=== PATIENT | male | born 1955 | race Asian ===

== ENCOUNTER 2020-11-28 14:37 | Observation (INO) | payer MEDICARE, OTHER ==
[~2020-11-28] VITALS: Ht 170.2 cm; Wt 89.4 kg
--- NOTE | 2020-11-28 14:50 | NUR ---
ED Nurse Note: pt presents to ED as recommended from Dr. Lawson for low hgb. pt has a h/o anemia and HTN. states that he has had a blood transfusion in the past. pt denies any pain; fevers/chills or SOB at this time. VSS on triage
[2020-11-28 14:51] VITALS: BP 153/82
--- NOTE | 2020-11-28 15:05 | Emergency Room Report ---
History of Present Illness General Chief Complaint: Abnormal Labs Source: Patient Present Illness HPI Patient is a 65-year-old male presents for decreased blood count. Patient had previous history of some fluid on the left lung. Had previous transfusions in the past. Denies any current bleeding. Denies any weakness or dyspnea. Intermittent chest discomfort. Denies any vomiting or diarrhea or rectal blee ding.Patient had recent blood count which showed hemoglobin of 5.8 Allergies: Coded Allergies: No Known Allergies (Unverified , 11/28/20) COVID-19 Screening Contact w/high risk pt: No Experienced COVID-19 symptoms?: No COVID-19 Testing performed INSPECTING SUPERVISOR: No Patient History Past Medical History: see triage record Reviewed Nursing Documentation: PMH: Agreed; PSxH: Agreed Nursing Documentation-PMH Hx Hypertension: Yes Review of Systems All Other Systems: negative except mentioned in HPI Physical Exam Vital Signs Date Time Temp Pulse Resp B/P (MAP) Pulse Ox O2 Delivery O2 Flow Rate FiO2 11/28/20 14:45 98.8 89 18 153/82 (105) 95 Room Air Sp02 EP Interpretation: reviewed, normal General Appearance: normal inspection, well appearing, no apparent distress, alert, GCS 15, Chronically Ill Head: atraumatic ENT: normal ENT inspection, hearing grossly normal, normal voice Neck: normal inspection, full range of motion, supple, no bony tend Respiratory: normal inspection, lungs clear, normal breath sounds, no respir atory distress, no retraction, no wheezing Cardiovascular #1: regular rate, rhythm, no edema Gastrointestinal: normal inspection, normal bowel sounds, non tender, soft, no guarding, no hernia Genitourinary: no CVA tenderness Musculoskeletal: normal inspection, back normal, normal range of motion Neurologic: alert, motor strength/tone normal, right of way man III-XII nml as tested, oriented x3, responsive, speech normal, normal inspection Psychiatric: normal inspection, judgement/insight normal, mood/affect normal Medical Decision Making Diagnostic Impression: Primary Impression: Severe anemia ER Course Patient presented for Abnormal laboratory testing. Differential diagnosis include was not limited to pneumonia, anemia, CHF, renal failure lab error among others. Because of complexity of patient's case laboratory tests and imaging studies were ordered.Patient was consented for blood. Patient's hemoglobin appears to be significantly diminished. Patient was agreeable with blood transfusion. patient's hemoglobin was not significantly changed from previous lab . Patient denies any recent bleeding. Dr. Celso Lawson was contacted for inpatient management. Labs Test 11/28/20 15:40 White Blood Count 8.0 K/UL (4.8-10.8) Red Blood Count 2.85 M/UL (4.70-6.10) Hemoglobin 6.5 G/DL (14.2-18.0) Hematocrit 21.8 % (42.0-52.0) Mean Corpuscular Volume 77 FL (80-99) Mean Corpuscular Hemoglobin 22.7 PG (27.0-31.0) Mean Corpuscular Hemoglobin Concent 29.7 G/DL (32.0-36.0) Red Cell Distribution Width 18.7 % (11.6-14.8) Platelet Count 396 K/UL (150-450) Mean Platelet Volume 5.8 FL (6.5-10.1) Neutrophils (%) (Auto) % (45.0-75.0) Lymphocytes (%) (Auto) % (20.0-45.0) Monocytes (%) (Auto) % (1.0-10.0) Eosinophils (%) (Auto) % (0.0-3.0) Basophils (%) (Auto) % (0.0-2.0) Prothrombin Time 11.1 SEC (9.30-11.50) Prothromb Time International Ratio 1.0 (0.9-1.1) Activated Partial Thromboplast Time 29 SEC (23-33) Sodium Level 138 MMOL/L (136-145) Potassium Level 3.6 MMOL/L (3.5-5.1) Chloride Level 104 MMOL/L (98-107) Carbon Dioxide Level 27 MMOL/L (21-32) Anion Gap 7 mmol/L (5-15) Blood Urea Nitrogen 15 mg/dL (7-18) Creatinine 1.4 MG/DL (0.55-1.30) Estimat Glomerular Filtration Rate 50.5 mL/min (>60) Glucose Level 216 MG/DL (74-106) Calcium Level 8.3 MG/DL (8.5-10.1) Total Bilirubin 1.0 MG/DL (0.2-1.0) Aspartate Amino Transf (AST/SGOT) 11 U/L (15-37) Alanine Aminotransferase (ALT/SGPT) 9 U/L (12-78) Alkaline Phosphatase 70 U/L (46-116) Total Protein 7.4 G/DL (6.4-8.2) Albumin 2.3 G/DL (3.4-5.0) Globulin 5.1 g/dL Albumin/Globulin Ratio 0.5 (1.0-2.7) Lipase 221 U/L (73-393) Last Vital Signs Date Time Temp Pulse Resp B/P (MAP) Pulse Ox O2 Delivery O2 Flow Rate FiO2 11/28/20 14:51 98.8 18 153/82 95 Room Air 11/28/20 14:45 89 Status: unchanged Disposition: PLACE IN OBSERVATION Condition: Stable Marco Gomez MD Nov 28, 2020 15:05
--- NOTE | 2020-11-28 15:39 | NUR ---
ED Nurse Note:blood sent to labs
[2020-11-28 16:27] LABS: HEMATOCRIT 21.8 % (42.0-52.0); MEAN CORPUSCULAR VOLUME 77 FL (80-99); PLATELET COUNT 396 K/UL (150-450); RED BLOOD COUNT 2.85 M/UL (4.70-6.10); RED CELL DISTRIBUTION WIDTH 18.7 % (11.6-14.8)
[2020-11-28 16:36] LABS: ALBUMIN 2.3 G/DL (3.4-5.0); ALBUMIN/GLOBULIN RATIO 0.5 (1.0-2.7); CALCIUM 8.3 MG/DL (8.5-10.1); CREATININE 1.4 MG/DL (0.55-1.30); POTASSIUM 3.6 MMOL/L (3.5-5.1)
[2020-11-28 16:43] LABS: HEMOGLOBIN 6.5 G/DL (14.2-18.0)
[2020-11-28 17:34] LABS: APPEARANCE,URINE CLEAR; BILIRUBIN, URINE NEGATIVE (NEGATIVE); GLUCOSE, URINE (UA) 2+ (NEGATIVE); KETONES,URINE 1+ (NEGATIVE); LEUKOCYTE ESTERASE ,URINE NEGATIVE (NEGATIVE); NITRITE,URINE NEGATIVE (NEGATIVE); PH,URINE 5 (4.5-8.0); PROTEIN,URINE 2+ (NEGATIVE); UROBILINOGEN,URINE 1 MG/DL (0.0-1.0)
[2020-11-28 17:58] LABS: COLOR,URINE YELLOW
--- NOTE | 2020-11-28 18:10 | NUR ---
ED Nurse Note: blood transufusion initated per hospital protcol
--- NOTE | 2020-11-28 18:15 | NUR ---
ED Nurse Note: no adverse reaction noted, will continue to transfuse per hospital protocol
--- NOTE | 2020-11-28 19:14 | NUR ---
HAND-OFF: Report given to Aniyah.
[2020-11-28 19:15] VITALS: BP 148/72
--- NOTE | 2020-11-28 19:15 | NUR ---
ED Nurse Note: Pt laying in bed AAOx4, breathing even and unlabored. No complaints from pt at the moment, denies pain at the moment. Pt currently receiving blood transfusion bag #1 of 2. Fluids offered and accepted.
--- NOTE | 2020-11-28 20:50 | NUR ---
ED Nurse Note: Report given to PREETHI Cedeño in [facility]. Aware bag 1/2 still infusing.
--- NOTE | 2020-11-28 21:00 | NUR ---
TRANSFER TO FLOOR: Patient transferred to [facility] via gurney accompanied by cleaning staff supervisor as ordered per EDMD. Report given to PREETHI Cedeño. Belongings and admission packet given to PREETHI Cedeño.
--- NOTE | 2020-11-28 21:15 | NUR ---
NURSE NOTES: Received report from Gala ORO. Patient is awake, alert and oriented x4. On room air, breathing is even and unlabored. No complain of pain or distress noted. IV right AC with first bag of blood running per order. VS stable. Oriented to hospital room. Patient understands and verbalizes needs. Will administer second bag of blood.
[2020-11-28 21:30] VITALS: BP 145/86
[2020-11-29] VITALS: BP 142/75
--- NOTE | 2020-11-29 03:40 | NUR ---
NURSE NOTES: Patient received total 2 bags of blood. No adverse reaction. VS stable. Patient tolerated transfusion.
[2020-11-29 04:00] VITALS: BP 132/72
--- NOTE | 2020-11-29 07:30 | NUR ---
NURSE HAND-OFF: Important Events on Shift: Admission, 2 bags of blood transfusion Patient Status: Stable Diet: Regular Pending Orders: [] Pending Results/Labs:[] Pending MD notification:[] Latest Vital Signs: Temperature 98.1 , Pulse 76 , B/P 132 /72 , Respiratory Rate 18 , O2 SAT 96 , Room Air, O2 Flow Rate . Vital Sign Comment: VS stable Latest Almaraz Fall Score: 20 Fall Risk: Low Risk Safety Measures: Call light Within Reach, Bed Alarm , Side Rails Side Rails x2, Bed position Low and Locked. Fall Precautions: Patient Fall Education Report given to Kye ORO..
--- NOTE | 2020-11-29 07:51 | NUR ---
NURSE NOTES: Received pt from PREETHI Caballero. pt was resting. no acute distress. call light w/in reach
[2020-11-29 08:00] VITALS: BP 145/84
[2020-11-29 08:32] LABS: BASOPHILS % (AUTO) 0.9 % (0.0-2.0); EOSINOPHILS % (AUTO) 3.1 % (0.0-3.0); HEMATOCRIT 28.7 % (42.0-52.0); HEMOGLOBIN 9.1 G/DL (14.2-18.0); LYMPHOCYTES % (AUTO) 15.7 % (20.0-45.0); MEAN CORPUSCULAR VOLUME 78 FL (80-99); MONOCYTES % (AUTO) 5.2 % (1.0-10.0); NEUTROPHILS % (AUTO) 75.1 % (45.0-75.0); PLATELET COUNT 402 K/UL (150-450); RED BLOOD COUNT 3.65 M/UL (4.70-6.10); RED CELL DISTRIBUTION WIDTH 19.2 % (11.6-14.8); WHITE BLOOD COUNT 8.6 K/UL (4.8-10.8)
--- NOTE | 2020-11-29 09:14 | History and Physical Report ---
DATE OF ADMISSION: 11/28/2020 REASON FOR ADMISSION: Profound anemia. HISTORY OF PRESENT ILLNESS: This is a 65-year-old male recently presented to my practice. The patient had recent admission to an outside facility/hospital for noted anemia and abnormal CT scan. The patient was recommended a biopsy but decided to sign out. The patient presented my office, noting significant fatigue and ongoing hemoptysis. The patient was scheduled for a PET scan. He also had routine blood work to assess whether the patient was significantly anemic and was noted to be so was admitted for observation for transfusion. The patient was feeling better with plan to discharge pending CBC. PAST MEDICAL HISTORY: Notable for lung mass, hypertension, hemoptysis. MEDICATIONS: Reviewed. ALLERGIES: Reviewed. SOCIAL HISTORY: The patient is currently nonsmoker, nondrinker. The patient is retired. REVIEW OF SYSTEMS: All 10 points reviewed and otherwise negative. PHYSICAL EXAMINATION: GENERAL: Well-developed male, overall currently comfortable, no significant distress. VITAL SIGNS: Otherwise reviewed. Blood pressure 132/60, temperature 98.2, heart rate 84, respiratory rate 14. HEENT: Negative. NECK: Supple. LUNGS: With reduced breath sounds on left base, otherwise clear. CARDIAC: S1 and S2. Regular rate and rhythm without murmurs, rubs, gallops. ABDOMEN: Soft, nontender. EXTREMITIES: No edema. NEUROLOGIC: Grossly nonfocal. Alert and oriented. LABORATORY DATA: Fully reviewed. Most notable for the low hemoglobin less than 7. IMPRESSION: 1. Profound anemia, possibly due to underlying significant hemoptysis. 2. Possible pleural effusion. 3. Lung mass, probable malignancy. Currently stable from pulmonary standpoint. RECOMMENDATION: We will discharge the patient home. Plan for PET CT on Tuesday with close followup. The patient is aware to return to the emergency room if worsening hemoptysis and shortness of breath occurs. We will discharge the patient pending CBC results this morning and the patient is aware to contact me with any issues or concerns or to immediately go to the emergency room if worsening symptoms. Celso Lawson M.D. DR: Jonna JOB#: [id number] CC:
--- NOTE | 2020-11-29 10:53 | NUR ---
NURSE NOTES: D/C pt with stable condition with family
--- NOTE | 2020-12-04 11:09 | Discharge Summary ---
Discharge Summary Discharge Summary _ Date of admission: 11/28/2020 Date of discharge: 11/29/[address] Lawson History of Present Illness and Brief Hospital Course Mr. Person is a 65-year-old male with past medical history of lung mass, hypertension, and hemoptysis, who was referred to the ER due to decreased blood count. Patient reported previous history of transfusions. Of note, patient recently presented to Dr. Lawson's practice. It was noted th at patient had recent admission to an outside facility/hospital for anemia and abnormal CT scan. Patient was recommended a biopsy but he decided to sign out. Since then, patient presented to Dr. Lawson's office complaining of significant fatigue and ongoing hemoptysis. Patient's initial laboratory studies revealed hemoglobin level of 6.5. Patient received 2 units of transfusions and was admitted for observation. The next day, his hemoglobin level improved to 9.1, and he was medically stable from pulmonary standpoint. Patient was scheduled for PET/CT on the upcoming Tuesday. Patient was instructed to return to emergency room if hemoptysis worsens and/or shortness of breath occurs. Consultants: None Discharge Condition Stable from pulmonary standpoint Final diagnoses Anemia, likely secondary to hemoptysis Hemoptysis Possible pleural effusion Lung mass, probable malignancy I have been assigned to dictate discharge summary for this account. I was not involved in the patient's management Ash Roche Dec 04, 2020 11:09
== END 2020-11-29 10:37 | disposition home or self-care (01) ==
LOC: EMR 15:22 → INTOOBSV 18:21 → 4E 18:21 → EDBEDREQ 20:26
DX: D64.9 Anemia, unspecified (principal); I10 Essential (primary) hypertension; R91.8 Other nonspecific abnormal finding of lung field; R04.2 Hemoptysis
CPT/HCPCS: 36415 ×2; 80053; 81003; 83690; 85007; 85025 ×2; 85610; 85730; 86850; 86900; 86901; 86920; 99284; G0378 ×2; P9016; 36430

== ENCOUNTER 2021-01-03 13:04 | Observation (INO) | payer MEDICARE, OTHER ==
[2021-01-03] VITALS (9 sets, daily range): BP systolic 130–150; BP diastolic 78–88
[~2021-01-03] VITALS: Ht 170.2 cm; Wt 86.2 kg
--- NOTE | 2021-01-03 13:25 | Emergency Room Report ---
History of Present Illness General Chief Complaint: Abnormal Labs Source: Patient (Marco Gomez MD) Present Illness HPI Patient is a 65-year-old male brought in by self from doctor's office after abnormal laboratory testing. Patient reportedly had a hemoglobin approximately 7. Prior history of anemia. Patient was sent in for possible transfusion. Denies any bleeding. Previous transfusion approximate 1 month ago. Followed by Dr. Lawson. Denies any dizziness or lightheadedness. Denies any chest discomfort. 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 COVID-19 Screening: Negative COVID-19 COVID-19 Testing Source: 1 month ago (Marco Gomez MD) Patient History Past Medical History: see triage record Reviewed Nursing Documentation: PMH: Agreed; PSxH: Agreed (Marco Gomez MD) Nursing Documentation-PMH Past Medical History: No History, Except For Hx Cardiac Problems: Yes Hx Hypertension: Yes Hx Cancer: No Hx Gastrointestinal Problems: No Hx Neurological Problems: No (Marco Gomez MD) Review of Systems All Other Systems: negative except mentioned in HPI (Marco Gomez MD) Physical Exam Vital Signs Date Time Temp Pulse Resp B/P (MAP) Pulse Ox O2 Delivery O2 Flow Rate FiO2 01/03/21 13:09 98.8 96 15 145/78 (100) 94 Room Air Sp02 EP Interpretation: reviewed, normal General Appearance: normal inspection, well appearing, no apparent distress, alert, GCS 15 Head: atraumatic ENT: normal ENT inspection, hearing grossly normal, normal voice Neck: normal inspection, full range of motion, supple, no bony tend Respiratory: normal inspection, lungs clear, normal breath sounds, no respiratory distress, no retraction, no wheezing Cardiovascular #1: regular rate, rhythm, no edema Gastrointestinal: normal inspection, normal bowel sounds, non tender, soft, no guarding, no hernia Genitourinary: no CVA tenderness Musculoskeletal: normal inspection, back normal, normal range of motion Neurologic: alert, motor strength/tone normal, barrel burner III-XII nml as tested, responsive, speech normal, normal inspection Psychiatric: normal inspection, judgement/insight normal, mood/affect normal Skin: pallor (Marco Gomez MD) Medical Decision Making Diagnostic Impression: Primary Impression: Severe anemia ER Course Presents for generalized weakness and abnormal blood count. Differential diagnosis include was not limited to anemia, GI bleed, renal disease among others.Patient's laboratory testing showed significant anemia. Patient was consented for blood and agreed to transfusion. Patient has had transfusion in the past. Patient will be admitted to Dr. Lawson for further monitoring and treatment. (Marco Gomez MD) ER Course Hospital Course 65-year-old male referred to ED for low hemoglobin. History of prior transfusion Patient initially seen and evaluated by Dr. Gomez. Please see his note for full history and physical Clinical course Labs- hemoglobin/hematocrit 6.4/22.6. BUN/creatinine elevated, no leukocytosis Blood transfusion started. Vitals stable. Case discussed with PMD Dr. Lawson and he agreed to admit patient to his service for further evaluation Diagnosis - severe anemia Admitted to floor in serious condition Laboratory Tests Test 01/03/21 13:35 White Blood Count 8.1 K/UL (4.8-10.8) Red Blood Count 3.04 M/UL (4.70-6.10) L Hemoglobin 6.4 G/DL (14.2-18.0) *L Hematocrit 22.6 % (42.0-52.0) L Mean Corpuscular Volume 74 FL (80-99) L Mean Corpuscular Hemoglobin 21.1 PG (27.0-31.0) L Mean Corpuscular Hemoglobin Concent 28.4 G/DL (32.0-36.0) L Red Cell Distribution Width 17.0 % (11.6-14.8) H Platelet Count 451 K/UL (150-450) H Mean Platelet Volume 6.6 FL (6.5-10.1) Neutrophils (%) (Auto) % (45.0-75.0) Lymphocytes (%) (Auto) % (20.0-45.0) Monocytes (%) (Auto) % (1.0-10.0) Eosinophils (%) (Auto) % (0.0-3.0) Basophils (%) (Auto) % (0.0-2.0) Differential Total Cells Counted 100 Neutrophils % (Manual) 73 % (45-75) Lymphocytes % (Manual) 17 % (20-45) L Monocytes % (Manual) 8 % (1-10) Eosinophils % (Manual) 2 % (0-3) Basophils % (Manual) 0 % (0-2) Band Neutrophils 0 % (0-8) Platelet Estimate Adequate Platelet Morphology Normal Polychromasia 1+ Hypochromasia 2+ Anisocytosis 2+ Microcytosis 1+ Ovalocytes Occasional Acanthocytes Occasional Prothrombin Time 11.1 SEC (9.30-11.50) Prothromb Time International Ratio 1.0 (0.9-1.1) Activated Partial Thromboplast Time 29 SEC (23-33) Sodium Level 136 MMOL/L (136-145) Potassium Level 5.2 MMOL/L (3.5-5.1) H Chloride Level 104 MMOL/L (98-107) Carbon Dioxide Level 24 MMOL/L (21-32) Anion Gap 8 mmol/L (5-15) Blood Urea Nitrogen 27 mg/dL (7-18) H Creatinine 1.9 MG/DL (0.55-1.30) H Estimat Glomerular Filtration Rate 35.5 mL/min (>60) Glucose Level 178 MG/DL (74-106) H Calcium Level 8.7 MG/DL (8.5-10.1) Total Bilirubin 0.5 MG/DL (0.2-1.0) Aspartate Amino Transf (AST/SGOT) 16 U/L (15-37) Alanine Aminotransferase (ALT/SGPT) 9 U/L (12-78) L Alkaline Phosphatase 80 U/L (46-116) Total Protein 8.2 G/DL (6.4-8.2) Albumin 2.5 G/DL (3.4-5.0) L Globulin 5.7 g/dL Albumin/Globulin Ratio 0.4 (1.0-2.7) L (Drew Barreto MD) Last Vital Signs Date Time Temp Pulse Resp B/P (MAP) Pulse Ox O2 Delivery O2 Flow Rate FiO2 01/03/21 13:09 98.8 96 15 145/78 (100) 94 Room Air Status: improved (Marco Gomez MD) Status: improved (Drew Barreto MD) Disposition: PLACE IN OBSERVATION Condition: Serious Marco Gomez MD Jan 03, 2021 13:25 Drew Barreto MD Jan 03, 2021 18:26
[2021-01-03 13:52] LABS: HEMATOCRIT 22.6 % (42.0-52.0); MEAN CORPUSCULAR VOLUME 74 FL (80-99); PLATELET COUNT 451 K/UL (150-450); RED BLOOD COUNT 3.04 M/UL (4.70-6.10); WHITE BLOOD COUNT 8.1 K/UL (4.8-10.8)
[2021-01-03 13:53] LABS: HEMOGLOBIN 6.4 G/DL (14.2-18.0)
[2021-01-03 13:57] LABS: CALCIUM 8.7 MG/DL (8.5-10.1); CREATININE 1.9 MG/DL (0.55-1.30); POTASSIUM 5.2 MMOL/L (3.5-5.1)
[2021-01-03 14:02] LABS: ALBUMIN 2.5 G/DL (3.4-5.0); ALBUMIN/GLOBULIN RATIO 0.4 (1.0-2.7); BILIRUBIN,TOTAL 0.5 MG/DL (0.2-1.0)
--- NOTE | 2021-01-03 14:04 | History & Physical ---
History and Physical History & Physicial HISTORY OF PRESENT ILLNESS: 65-year-old male recently presented for transfusion. The patient had recent admission to an outside facility/hospital for noted anemia and abnormal CT scan. 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 The patient presented my office, noting significant fatigue and worsening anemia. The patient agreed to thoracentesis and bronchoscopy but does not want thoracic or oncologic intervention PAST MEDICAL HISTORY: Notable for lung mass, hypertension, hemoptysis. pleural effusion, prior transfusion MEDICATIONS: Reviewed. ALLERGIES: Reviewed. SOCIAL HISTORY: The patient is currently nonsmoker, nondrinker. The patient is retired. REVIEW OF SYSTEMS: All 10 points reviewed and otherwise negative. PHYSICAL EXAMINATION: GENERAL: Well-developed male, overall currently comfortable, no significant distress. VITAL SIGNS: reviewed HEENT: Negative. NECK: Supple. LUNGS: With reduced breath sounds on left base, otherwise clear. CARDIAC: S1 and S2. Regular rate and rhythm without murmurs, rubs, gallops. ABDOMEN: Soft, nontender. EXTREMITIES: No edema. NEUROLOGIC: Grossly nonfocal. Alert and oriented. LABORATORY DATA: Laboratory Tests 01/03/21 13:35: White Blood Count 8.1, Red Blood Count 3.04L, Hemoglobin 6.4*L, Hematocrit 22.6L , Mean Corpuscular Volume 74L, Mean Corpuscular Hemoglobin 21.1L, Mean Corpuscular Hemoglobin Concent 28.4L, Red Cell Distribution Width 17.0H, Platelet Count 451H, Mean Platelet Volume 6.6, Neutrophils (%) (Auto) , Lymphocytes (%) (Auto) , Monocytes (%) (Auto) , Eosinophils (%) (Auto) , Basophils (%) (Auto) , Neutrophils % (Manual) [Pending], Lymphocytes % (Manual) [Pending], Platelet Estimate [Pending], Platelet Morphology [Pending], Prothrombin Time 11.1, Prothromb Time International Ratio 1.0, Activated Partial Thromboplast Time 29, Sodium Level 136, Potassium Level 5.2H, Chloride Level 104, Carbon Dioxide Level 24, Anion Gap 8, Blood Urea Nitrogen 27H, Creatinine 1.9H, Estimat Glomerular Filtration Rate 35.5, Glucose Level 178H, Calcium Level 8.7, Total Bilirubin [Pending], Aspartate Amino Transf (AST/SGOT) [Pending], Alanine Aminotransferase (ALT/SGPT) [Pending], Alkaline Phosphatase [Pending], Total Protein [Pending], Albumin [Pending], Globulin [Pending] IMPRESSION: 1. Profound anemia, possibly due to underlying significant hemoptysis. 2. pleural effusion. 3. 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 renal insufficiency RECOMMENDATION: transfuse dc in am schedule outpatient tap outpatient bronch per patient, no other intervention desired impression, plan, and exam edited and reviewed in detail care discussed with Celso Reddy MD Jan 03, 2021 14:04
--- NOTE | 2021-01-03 15:43 | NUR ---
ED Nurse Note: pt sent for abnormal blood work and possible transfusion from PMD. pt blood sent to lab, [address] R arm. Hgb 6.4, notified. blood transfusion ordered. consent signed. pt vitals updated. pt on continuous cardiac/O2 monitor. pt stable. will continue to monitor. 1455: blood transfusion intitiated. vitals updated. pt on continuous cardiac/O2 monitor. pt stable. will continue to monitor. 1615: called report to Aleks ORO.
--- NOTE | 2021-01-03 16:40 | NUR ---
ED Nurse Note: pt MRSA swab sent to lab
--- NOTE | 2021-01-03 16:51 | NUR ---
NURSE NOTES: Handoff received from Jonathan ORO. Patient arrived safely to 4E via gurney. PAtient is awake and alert, no signs of acute distress noted, breathing is even and unlabored on room air. Right hand IVs are intact and patent. Belongings list verified and signed. Bed is low and locked, side rails up x2, call light is within reach.
[2021-01-03] MEDS ORDERED: NIFEDIPINE ER60 M2 ORAL (17:15)
[2021-01-03] MEDS ORDERED: TELMISARTAN80 MG PO (17:15)
[2021-01-03] MEDS ORDERED: LORATADINE10 M2 PO (17:16)
--- NOTE | 2021-01-03 19:25 | NUR ---
NURSE HAND-OFF: Important Events on Shift:[PRBC 1 unit started] Patient Status: stable Diet: stable Pending Orders: cbc bmp Pending Results/Labs: Pending MD notification: Latest Vital Signs: Temperature 98.8 , Pulse 82 , B/P 143 /81 , Respiratory Rate 20 , O2 SAT 95 , Room Air, O2 Flow Rate . Vital Sign Comment: stable Latest Almaraz Fall Score: 35 Fall Risk: Medium Risk Safety Measures: Call light Within Reach, Bed Alarm Zone 1, Side Rails Side Rails x2, Bed position Low and Locked. Fall Precautions: Patient Fall Education Report given to Kanwal ORO.
--- NOTE | 2021-01-03 19:30 | NUR ---
NURSE NOTES: Patient in bed, awake and alert x4. On room air with no signs of distress or SOB. Transfusion of 1 unit PRBCs in progress. Patient tolerating well. Bed locked and in lowest position. Call light in reach. Will continue plan of care.
[2021-01-04 06:30] LABS: BASOPHILS % (AUTO) 1.3 % (0.0-2.0); EOSINOPHILS % (AUTO) 3.1 % (0.0-3.0); HEMATOCRIT 27.6 % (42.0-52.0); HEMOGLOBIN 8.3 G/DL (14.2-18.0); LYMPHOCYTES % (AUTO) 18.2 % (20.0-45.0); MEAN CORPUSCULAR VOLUME 77 FL (80-99); MONOCYTES % (AUTO) 6.4 % (1.0-10.0); NEUTROPHILS % (AUTO) 71.1 % (45.0-75.0); PLATELET COUNT 410 K/UL (150-450); RED BLOOD COUNT 3.59 M/UL (4.70-6.10); RED CELL DISTRIBUTION WIDTH 17.2 % (11.6-14.8); WHITE BLOOD COUNT 8.2 K/UL (4.8-10.8)
--- NOTE | 2021-01-04 06:37 | NUR ---
NURSE HAND-OFF: Important Events on Shift: No acute events, refused IV access and vital signs. D/C today Patient Status: Stable Diet: Reg Pending Orders: Discharge (other nursing orders) Pending Results/Labs: CBC, BMP Pending MD notification:N/A Latest Vital Signs: Temperature 98.1 , Pulse 97 , B/P 148 /84 , Respiratory Rate 18 , O2 SAT 99 , Room Air, O2 Flow Rate . Vital Sign Comment: N/A Latest Almaraz Fall Score: 35 Fall Risk: Medium Risk Safety Measures: Call light Within Reach, Bed Alarm Zone 1, Side Rails Side Rails x2, Bed position Low and Locked. Fall Precautions: Patient Fall Education
[2021-01-04 06:41] LABS: CALCIUM 8.8 MG/DL (8.5-10.1); CREATININE 1.6 MG/DL (0.55-1.30); POTASSIUM 4.8 MMOL/L (3.5-5.1)
--- NOTE | 2021-01-04 07:17 | NUR ---
NURSE NOTES: Handoff received from Kanwal ORO. Patient is awake and alert, no signs of acute distress noted, breathing is even and unlabored on room air. No IV access by patient request per NOC RN. Patient is also declining vital signs. Patient updated on plan of care and possible dicharge this AM. Bed is low and locked, side rails up x2, call light is within reach.
--- NOTE | 2021-01-04 09:33 | General Progress Note ---
Subjective Allergies: Coded Allergies: No Known Allergies (Unverified , 11/28/20) Subjective improved plan for tap this week discussed labs reviewed Objective Last 24 Hour Vital Signs Date Time Temp Pulse Resp B/P (MAP) Pulse Ox O2 Delivery O2 Flow Rate FiO2 01/03/21 21:00 Room Air 01/03/21 20:00 98.1 97 18 148/84 (105) 99 01/03/21 17:09 98.8 82 20 143/81 95 Room Air 01/03/21 17:00 98.6 85 20 143/85 (104) 96 01/03/21 17:00 Room Air 01/03/21 16:39 82 20 143/81 95 Room Air 01/03/21 15:57 81 18 148/83 94 Room Air 01/03/21 15:41 87 18 150/88 99 Room Air 01/03/21 15:10 84 18 149/83 97 Room Air 01/03/21 14:55 87 18 150/80 100 Room Air 01/03/21 14:02 86 18 130/79 97 Room Air 01/03/21 13:30 98.8 15 145/78 94 Room Air 01/03/21 13:09 98.8 96 15 145/78 (100) 94 Room Air Intake and Output 01/03/21 01/04/21 19:00 07:00 Intake Total 300 ml Balance 300 ml Intake Oral 300 ml # Voids 2 Laboratory Tests 01/03/21 13:35: White Blood Count 8.1, Red Blood Count 3.04L, Hemoglobin 6.4*L, Hematocrit 22.6L , Mean Corpuscular Volume 74L, Mean Corpuscular Hemoglobin 21.1L, Mean Corpuscular Hemoglobin Concent 28.4L, Red Cell Distribution Width 17.0H, Platelet Count 451H, Mean Platelet Volume 6.6, Neutrophils (%) (Auto) , Lymphocytes (%) (Auto) , Monocytes (%) (Auto) , Eosinophils (%) (Auto) , Basophils (%) (Auto) , Differential Total Cells Counted 100, Neutrophils % (Manual) 73, Lymphocytes % (Manual) 17L, Monocytes % (Manual) 8, Eosinophils % (Manual) 2, Basophils % (Manual) 0, Band Neutrophils 0, Platelet Estimate Adequate, Platelet Morphology Normal, Polychromasia 1+, Hypochromasia 2+, Anisocytosis 2+, Microcytosis 1+, Ovalocytes Occasional, Acanthocytes Occasional, Prothrombin Time 11.1, Prothromb Time International Ratio 1.0, Activated Partial Thromboplast Time 29, Sodium Level 136, Potassium Level 5.2H, Chloride Level 104, Carbon Dioxide Level 24, Anion Gap 8, Blood Urea Nitrogen 27H, Creatinine 1.9H, Estimat Glomerular Filtration Rate 35.5, Glucose Level 178H, Calcium Level 8.7, Total Bilirubin 0.5, Aspartate Amino Transf (AST/SGOT) 16, Alanine Aminotransferase (ALT/SGPT) 9L, Alkaline Phosphatase 80, Total Protein 8.2, Albumin 2.5L, Globulin 5.7, Albumin/Globulin Ratio 0.4L 01/04/21 05:15: White Blood Count 8.2, Red Blood Count 3.59L, Hemoglobin 8.3L, Hematocrit 27.6L, Mean Corpuscular Volume 77L, Mean Corpuscular Hemoglobin 23.2L, Mean Corpuscular Hemoglobin Concent 30.2L, Red Cell Distribution Width 17.2H, Platelet Count 410, Mean Platelet Volume 6.2L, Neutrophils (%) (Auto) 71.1, Lymphocytes (%) (Auto) 18.2L, Monocytes (%) (Auto) 6.4, Eosinophils (%) (Auto) 3.1H, Basophils (%) (Auto) 1.3, Sodium Level 140, Potassium Level 4.8, Chloride Level 107, Carbon Dioxide Level 25, Anion Gap 9, Blood Urea Nitrogen 23H, Creatinine 1.6H, Estimat Glomerular Filtration Rate 43.3, Glucose Level 120H, Calcium Level 8.8 Height (Feet): 5 Height (Inches): 7.00 Weight (Pounds): 190 Objective WDWN NAD reduced breath sounds right base and clear left without rhonchi or wheeze [id number] without MRG NABS nontender no HSM no CCE nonfocal Assessment/Plan Assessment/Plan: IMPRESSION: 1. Profound anemia, possibly due to underlying significant hemoptysis. 2. pleural effusion. 3. 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 renal insufficiency RECOMMENDATION: transfused dc today schedule outpatient tap outpatient bronch per patient, no other intervention desired resume home meds impression, plan, and exam edited and reviewed in detail care discussed with Celso Reddy MD Jan 04, 2021 09:33
--- NOTE | 2021-01-04 10:32 | NUR ---
NURSE NOTES: Patient safely discharged from to home via private vehicle. Patient information packet provided, questions answered, education provided. Belongings list verified and signed, patient to follow up with MD on Tue. Iv and Id wristband removed.
== END 2021-01-04 10:25 | disposition home or self-care (01) ==
LOC: EMR 13:29 → EDBEDREQ 16:15 → 4E 16:20
DX: D64.9 Anemia, unspecified (principal); J90 Pleural effusion, not elsewhere classified; R91.8 Other nonspecific abnormal finding of lung field; N28.9 Disorder of kidney and ureter, unspecified; I10 Essential (primary) hypertension
CPT/HCPCS: 36415 ×2; 36430; 80048; 80053; 85007; 85025 ×2; 85610; 85730; 86850; 86900; 86901; 86920; 87081; 99285; G0378 ×2; P9016

== ENCOUNTER → 2021-01-09 | Outpatient (CLI) | payer MEDICARE, OTHER ==
[~2021-01-09] VITALS: Ht 170.2 cm; Wt 86.2 kg
[~2021-01-09] MED LIST: LORATADINE10 M2 PO; NIFEDIPINE ER60 M2 ORAL; TELMISARTAN80 MG PO
[2021-01-09 11:33] VITALS: BP 140/87
[2021-01-09 12:45] VITALS: BP 132/82
[2021-01-09 13:00] VITALS: BP 119/67
[2021-01-09 13:15] VITALS: BP 132/74
--- NOTE | 2021-01-09 13:16 | Brief Operative Note ---
Immediate Post Operative Note Operative Note Pre-op Diagnosis: pleural effusion Procedure: thoracentesis Post-op Diagnosis: same as pre-op Surgeon: Carl Ashley Anesthesia: local Specimen: none Complications: none Fluids: none Implant(s) used?: No Álvaro Ashley MD Jan 09, 2021 13:16
--- NOTE | 2021-01-09 13:16 | Pre-Procedure Note/Attestation ---
Pre-Procedure Note/Attestation Complete Prior to Procedure Planned Procedure: left Procedure Narrative: Thoracentesis Indications for Procedure Pre-Operative Diagnosis: pleural effusion Attestation I attest that I discussed the nature of the procedure; its benefits; risks and complications; and alternatives (and the risks and benefits of such alternatives), prior to the procedure, with the patient (or the patient's legal telephone claims representative). I attest that, if there was a reasonable possibility of needing a blood ennis sfusion, the patient (or the patient's legal telephone claims representative) was given the [facility] standardized written summary, pursuant to the Vicente [employer] Blood Safety Act ([place] Health and Safety Code # 1645, as amended). I attest that I re-evaluated the patient just prior to the surgery and that there has been no change in the patient's H&P, except as documented below: Álvaro Hurst MD Jan 09, 2021 13:16
[2021-01-09 13:30] VITALS: BP 118/72
--- NOTE | 2021-01-09 13:46 | Diagnostic Imaging Report ---
Indications: Pleural effusion Technique: Ultrasound used to localize optimal puncture site. Sterile prepping and draping left chest. Local anesthesia with 1% lidocaine. Under real-time ultrasound guidance, puncture pleural space using thoracentesis needle. Stylet removed. Catheter placed to vacuum bottle suction. Total 1400 milliliters of fluid aspirated. Patient tolerated procedure well, without immediate complication. Findings: Followup sonography demonstrates resolution of most of the pleural fluid, small amount of residual Impression: Successful ultrasound-guided thoracentesis, yielding 1400 milliliters of fluid
--- NOTE | 2021-01-09 13:50 | Diagnostic Imaging Report ---
Indication: Postthoracentesis, shortness of breath Technique: One view of the chest Comparison: None Findings: Known pneumothorax is demonstrated. There is an opacity at the left mid and lower lung. The left upper lung demonstrates minimal atelectasis, otherwise clear. The right lung and pleural space are clear. Impression: No evidence of pneumothorax, status post thoracentesis Left mid and lower lung opacity. This to some extent represents a small amount of residual pleural fluid demonstrated on completion images from the thoracentesis, but likely mostly represents a left lung mass or dense consolidation that was visible during thoracentesis.
== END | disposition home or self-care (01) ==
LOC: EDSTATUS 01-07 13:00 → ULS 11:22
DX: J90 Pleural effusion, not elsewhere classified (principal)
CPT/HCPCS: 71045; 76942; 87070; 87116; 87205; 88104